=== PATIENT | female | born 1995 | race African-American/Black ===

== ENCOUNTER 2017-03-12 19:30 | Emergency (ER) | payer OTHER ==
[~2017-03-12] VITALS: Ht 160 cm; Wt 72.5 kg
[~2017-03-12 19:30] MED LIST: AMOX-426 PO; IBUP-1547 PO
[2017-03-12 20:24] LABS: APPEARANCE,URINE CLOUDY (CLEAR); GLUCOSE, URINE (UA) NEGATIVE (NEGATIVE); KETONES,URINE NEGATIVE (NEGATIVE); LEUKOCYTE ESTERASE ,URINE MODERATE (NEGATIVE); OCCULT BLOOD,URINE NEGATIVE (NEGATIVE); PROTEIN,URINE NEGATIVE (NEGATIVE)
[2017-03-12 20:31] LABS: ADD UA MICROSCOPIC YES; RBC,URINE 0-2 /HPF (0-2); SQUAMOUS EPITHELIAL CELL,UR Few /LPF (None Seen); WBC,URINE 26-50 /HPF (0-5)
[2017-03-12 21:45] VITALS: BP 111/76
== END 2017-03-12 21:55 | disposition home or self-care (01) ==
LOC: EMS 19:31
DX: N39.0 Urinary tract infection, site not specified (principal); F17.210 Nicotine dependence, cigarettes, uncomplicated; G43.909 Migraine, unspecified, not intractable, without status migrainosus
CPT/HCPCS: 87086; 99284; 99406

== ENCOUNTER 2023-03-06 08:42 | Emergency (ER) | payer OTHER ==
[~2023-03-06] VITALS: Ht 160 cm; Wt 65.9 kg
[2023-03-06 08:48] VITALS: TEMP 98
[2023-03-06 09:12] VITALS: BP 128/78; PULSE 80; RESP 18
== END 2023-03-06 09:39 | disposition home or self-care (01) ==
LOC: EMS 08:42
DX: H57.11 Ocular pain, right eye (principal); F17.210 Nicotine dependence, cigarettes, uncomplicated; Z02.79 Encounter for issue of other medical certificate; Z98.890 Other specified postprocedural states
CPT/HCPCS: 99281; 99282; Z7502